=== PATIENT | female | born 1985 | race Two or more races ===

== ENCOUNTER 2016-10-07 01:57 | Emergency (ER) | payer MEDICAID ==
[~2016-10-07] VITALS: Ht 160 cm; Wt 75.0 kg
[2016-10-07 02:03] VITALS: Ht 160 cm; Wt 75.0 kg
--- NOTE | 2016-10-07 06:30 | ERD ---
ER Documentation Chief Complaint Date/Time DATE: 10/07/16 TIME: 06:26 Chief Complaint left foot pain/swelling x 1 week while stretching HPI Patient is a 31-year-old female who presents emergency department with left foot pain and swelling 1 week. Patient states the pain started after some morning stretching exercises. Patient denies any falls or trauma. Patient denies any fevers, chills, nausea, vomiting, calf pain, knee pain upper leg pain. Patient states she is unable to bear weight to the affected extremity secondary to severe pain. Patient does report taking ibuprofen with no alleviation of symptoms. ROS All systems reviewed and are negative except as per history of present illness. Allergies Allergies: Coded Allergies: No Known Drug Allergies (Verified Allergy, Unknown, 10/07/16) PMhx/Soc History of Surgery: No Anesthesia Reaction: No Hx Neurological Disorder: No Hx Respiratory Disorders: No Hx Cardiac Disorders: No Hx Psychiatric Problems: No Hx Miscellaneous Medical Probl: No Hx Alcohol Use: No Hx Substance Use: No Hx Tobacco Use: No Smoking Status: Never smoker Physical Exam Vitals Vital Signs Date Time Temp Pulse Resp B/P Pulse Ox O2 Delivery O2 Flow Rate FiO2 10/07/16 02:03 98.5 96 20 140/66 98 Physical Exam GENERAL: Well-developed, well-nourished female. Appears in no acute distress. HEAD: Normocephalic, atraumatic. EYES: Pupils are equally reactive bilaterally. EOMs grossly intact. No conjunctival erythema. ENT: Moist mucous membranes. No uvula deviation. No kissing tonsils. NECK: Supple. No meningismus. Normal range of motion of the neck. LUNG: Clear to auscultation bilaterally. No rhonchi, wheezing, rales or coarse breath sounds. HEART: Regular rate and rhythm. No murmurs, rubs or gallops. EXTREMITIES: Equal pulses bilaterally. No peripheral clubbing, cyanosis or edema. No unilateral leg swelling. NEUROLOGIC: Alert and oriented. Moving all four extremities without any difficulty. Normal speech. Steady gait. SKIN: Normal color. Warm and dry. No rashes or lesions. LEFT FOOT/ANKLE: No obvious deformity. No ecchymosis. +Swelling to the lateral foot and ankle. Skin intact. Range of motion of the knee, ankle no crepitus. Tender to palpation of the lateral midfoot and ankle. Non tender to palpation of knee, tib/fib. No valgus/varus instability. Sensation intact to light touch. Neurovascularly intact. (Able to plantarflex, dorsiflex, yoselyn foot, invert foot , raise big toe.) 2+ DP and DT pulses. Procedures/MDM ED COURSE: The patient was stable throughout ED course. I offered the patient x-ray imaging. Patient demanded that imaging be done [facility] given that she was "tired of waiting." I advised the patient and her family member that imaging was ordered and she would need to wait in the results waiting area to be taken for xray imaging by xray video technician. After approximately 10 minutes of waiting, patient become augmentative with registration and nursing staff and stated that she wanted to leave. Per nursing staff, patient refused to wait to for discharge paperwork and wished to sign out AMA. Patient was advised by myself that at this time, we would not be able to determine the cause of her pain. Patient was encouraged to follow up with her PCP for further workup and management of her symptoms. DIAGNOSIS: Left ankle pain Left foot pain DISPO: At this time, despite my efforts, the patient has decided to leave the emergency room against medical advice (AMA). The patient displays full decision- making capacity. The patient is over the age of 18. The patient exhibits no evidence of altered level of consciousness or alcohol/drug ingestion that would impair her judgment. I have explained to the patient the risks of leaving AMA including, but not limited to permanent disability and/or . The patient has had the opportunity to ask questions about her condition. The patients family member is present and is aware of the patients condition and desire to leave AMA. The patient has been informed that she may return to the emergency room for care at any time. I have advised the patient to also follow up with her primary care physician [facility]. Departure Diagnosis: Primary Impression: Ankle pain Laterality: unspecified laterality Chronicity: unspecified Qualified Code: M25.579 - Ankle pain, unspecified chronicity, unspecified laterality Additional Impression: Foot pain Laterality: unspecified laterality Qualified Code: M79.673 - Pain of foot, unspecified laterality Condition: Stable JULES JOHNSON PA-C Oct 07, 2016 06:30
== END 2016-10-07 04:42 | disposition left against medical advice (07) ==
LOC: FTE 01:57
DX: M25.579 Pain in unspecified ankle and joints of unspecified foot (principal)
CPT/HCPCS: 99282